=== PATIENT | male | born 1995 | race Hispanic/Latino ===

== ENCOUNTER 2017-02-08 15:21 | Emergency (ER) | payer SELFPAY ==
[~2017-02-08] VITALS: Ht 172.7 cm; Wt 65.0 kg
[~2017-02-08 15:21] MED LIST: FLEXERIL PO; NO; PERCOCET 5/325M1 TAB OR; ULTRAM50 M1 PO
[2017-02-08 16:41] LABS: HEMOGLOBIN 16.2 g/dl (14.0-18.0); IMMATURE GRANULOCYTES 0.1 % (0.0-1.0); MEAN CELL VOLUME 92.5 fL CALC (80.0-100.0); MEAN CORPUSCULAR HGB 31.9 pG CALC (26.0-32.0); MEAN CORPUSCULAR HGB CONC 34.5 g/L CALC (32.0-36.0); NEUT# 4.5 thou/uL (1.82-7.42); RED BLOOD COUNT 5.08 mill/uL (4.70-6.10)
[2017-02-08 16:56] LABS: ALBUMIN 4.6 g/dL (3.2-5.0); ALKALINE PHOSPHATASE 92 u/l (38-126); ANION GAP 17 (6-22 (CALC)); BILIRUBIN, TOTAL 0.7 mg/dL (0.0-1.4); BUN 9 mg/dL (9-20); BUN/CREATININE RATIO 11 (12-20 (CALC)); CALCIUM 9.6 mg/dL (8.4-10.2); CARBON DIOXIDE 23 mmol/l (22-30); CHLORIDE 102 mmol/l (95-108); CPK 50 u/l (52-200); CREATININE 0.8 mg/dL (0.7-1.3); GFR > 60 ML/MIN (>=60 (CALC)); GFR FOR AFR.AMER. > 60 ML/MIN (>=60 (CALC)); GLUCOSE 84 mg/dL (75-110); POTASSIUM 4.3 mmol/l (3.5-5.1); SGOT/AST 28 u/l (17-59); SGPT/ALT 37 u/l (21-72); SODIUM 137 mmol/l (137-146); TOTAL PROTEIN 7.5 g/dL (6.3-8.2)
[2017-02-08 16:57] LABS: AMYLASE 68 u/l (30-110); LIPASE 65 u/l (23-300)
[2017-02-08 17:14] LABS: URINE BILIRUBIN - DIPSTICK NEGATIVE (NEGATIVE); URINE BLOOD DIPSTICK SMALL (NEGATIVE); URINE CLARITY CLEAR; URINE COLOR YELLOW; URINE GLUCOSE - DIPSTICK NEGATIVE (NEGATIVE); URINE KETONE NEGATIVE (NEGATIVE); URINE LEUK ESTERASE NEGATIVE (NEGATIVE); URINE NITRITE - DIPSTICK NEGATIVE (Negative); URINE PH 6.5 (4.5-8.0); URINE PROTEIN - DIPSTICK NEGATIVE (NEG-TRACE); URINE SPECIFIC GRAVITY <=1.005; URINE UROBILINOGEN - DIPSTICK 0.2 E.U./dL (0.2)
[2017-02-08 17:15] LABS: URINE RBC 0-2 RBC/hpf (0-5)
[2017-02-08] MEDS ORDERED: ZOFRAN4 MG/TAB PO (18:24)
[2017-02-08 18:28] VITALS: BP 130/83
== END 2017-02-08 18:34 | disposition home or self-care (01) | DRG 392 ==
LOC: ED 15:21
PROVIDERS: Family Medicine
DX: R10.84 Generalized abdominal pain (principal); Z87.442 Personal history of urinary calculi
CPT/HCPCS: Q9967

== ENCOUNTER 2017-11-26 17:09 | Emergency (ER) | payer SELFPAY ==
[~2017-11-26] VITALS: Ht 172.7 cm; Wt 65.0 kg
[~2017-11-26 17:09] MED LIST changes: +ZOFRAN4 MG/TAB PO
[2017-11-26 17:38] LABS: HEMATOCRIT 44.9 % (39.0-50.0); HEMOGLOBIN 15.7 g/dl (14.0-18.0); IMMATURE GRANULOCYTES 0.3 % (0.0-1.0); MEAN CELL VOLUME 92.2 fL CALC (80.0-100.0); MEAN CORPUSCULAR HGB 32.2 pG CALC (26.0-32.0); NEUT# 4.46 thou/uL (1.82-7.42); RED BLOOD COUNT 4.87 mill/uL (4.70-6.10); RED CELL DISTRI WIDTH 12.1 % (11.5-15.5)
[2017-11-26 18:02] LABS: ALBUMIN 4.7 g/dL (3.2-5.0); ALKALINE PHOSPHATASE 84 u/l (38-126); ANION GAP 18 (6-22 (CALC)); BILIRUBIN, TOTAL 0.5 mg/dL (0.0-1.4); BUN 13 mg/dL (9-20); BUN/CREATININE RATIO 17 (12-20 (CALC)); CARBON DIOXIDE 29 mmol/l (22-30); CHLORIDE 100 mmol/l (95-108); CREATININE 0.8 mg/dL (0.7-1.3); GFR > 60 ML/MIN (>=60 (CALC)); GFR FOR AFR.AMER. > 60 ML/MIN (>=60 (CALC)); LIPASE 90 u/l (23-300); POTASSIUM 4.2 mmol/l (3.5-5.1); SGOT/AST 22 u/l (17-59); SGPT/ALT 30 u/l (21-72); SODIUM 143 mmol/l (137-146); TOTAL PROTEIN 7.9 g/dL (6.3-8.2)
[2017-11-26 18:09] LABS: URINE BILIRUBIN - DIPSTICK NEGATIVE (NEGATIVE); URINE BLOOD DIPSTICK NEGATIVE (NEGATIVE); URINE COLOR YELLOW; URINE GLUCOSE - DIPSTICK NEGATIVE (NEGATIVE); URINE KETONE TRACE mg/dL (NEGATIVE); URINE LEUK ESTERASE NEGATIVE (NEGATIVE); URINE NITRITE - DIPSTICK NEGATIVE (Negative); URINE PROTEIN - DIPSTICK NEGATIVE (NEG-TRACE); URINE SPECIFIC GRAVITY 1.025; URINE UROBILINOGEN - DIPSTICK 0.2 E.U./dL (0.2)
[2017-11-26 18:10] LABS: URINE CLARITY CLEAR
[2017-11-26] MEDS ORDERED: ONDANSETRON4 MG PO (18:18)
[2017-11-26] MEDS ORDERED: MOTRIN400 MG PO (18:18)
[2017-11-26 18:34] VITALS: BP 119/63
== END 2017-11-26 18:44 | disposition home or self-care (01) | DRG 392 ==
LOC: ED 17:09
PROVIDERS: Family Medicine
DX: R10.12 Left upper quadrant pain (principal); R10.32 Left lower quadrant pain; F17.290 Nicotine dependence, other tobacco product, uncomplicated; Z87.442 Personal history of urinary calculi

== ENCOUNTER 2018-05-20 08:29 | Emergency (ER) | payer SELFPAY ==
[~2018-05-20] VITALS: Ht 172.7 cm; Wt 61.0 kg
[~2018-05-20 08:29] MED LIST changes: +MOTRIN400 MG PO; +ONDANSETRON4 MG PO
[2018-05-20] MEDS ORDERED: ZPAK PO (08:43)
[2018-05-20 09:02] VITALS: BP 133/85
== END 2018-05-20 09:12 | disposition home or self-care (01) | DRG 153 ==
LOC: ED 08:29
DX: J06.9 Acute upper respiratory infection, unspecified (principal)

== ENCOUNTER 2022-09-18 19:25 | Emergency (ER) | payer SELFPAY ==
[~2022-09-18] VITALS: Ht 172.7 cm; Wt 68.1 kg
[~2022-09-18 19:25] MED LIST changes: +ZPAK PO
[2022-09-18 19:44] VITALS: BP 131/87
[2022-09-18 19:45] VITALS: BP 120/83
[2022-09-18 20:00] VITALS: BP 110/77
[2022-09-18 20:15] VITALS: BP 109/77
== END 2022-09-18 20:38 | disposition home or self-care (01) | DRG 563 ==
LOC: ED 19:25
DX: S39.011A Strain of muscle, fascia and tendon of abdomen, initial encounter (principal); X50.0XXA Overexertion from strenuous movement or load, initial encounter

== ENCOUNTER 2023-09-09 14:48 | Emergency (ER) | payer SELFPAY ==
[~2023-09-09] VITALS: Ht 172.7 cm; Wt 63.0 kg
[2023-09-09 14:54] VITALS: BP 119/73
[2023-09-09 15:00] VITALS: BP 110/75
[2023-09-09] MEDS ORDERED: SODIUM CHLORIDE 0.9% 1,000 ML IV ONE (15:00)
[2023-09-09] MEDS ORDERED: KETOROLAC TROMETHAMINE 30 MG/ML SDV IV ONE (15:00)
[2023-09-09] MEDS ORDERED: ACETAMINOPHEN 500 MG TAB PO ONE (15:05)
[2023-09-09 15:15] LABS: BASO% 0.1 % (0-3); EOS% 0.1 % (0-8); HEMATOCRIT 42.1 % (39.0-50.0); HEMOGLOBIN 14.4 g/dl (14.0-18.0); IMMATURE GRANULOCYTES 0.1 % (0.0-5.0); LYMPH% 10.3 % (15-41); MEAN CELL VOLUME 89.4 fL CALC (80.0-100.0); MEAN CORPUSCULAR HGB 30.6 pG CALC (26.0-32.0); MEAN CORPUSCULAR HGB CONC 34.2 g/dL CAL (32.0-36.0); MONO% 7.2 % (2-13); NEUT# 5.71 thou/uL (1.82-7.42); NEUT% 82.2 % (42-76); RED BLOOD COUNT 4.71 mill/uL (4.70-6.10); RED CELL DISTRI WIDTH 12.3 % (11.5-15.5)
[2023-09-09 15:30] VITALS: BP 114/72
[2023-09-09 15:38] LABS: ALBUMIN 4.4 g/dL (3.2-5.0); ALKALINE PHOSPHATASE 69 u/l (38-126); ANION GAP 15 (6-22 (CALC)); BILIRUBIN, TOTAL 0.6 mg/dL (0.2-1.3); BUN 13 mg/dL (9-20); BUN/CREATININE RATIO 13 (12-20 (CALC)); CARBON DIOXIDE 21 mmol/l (22-30); CHLORIDE 103 mmol/l (95-108); GFR FOR AFR.AMER. > 60 ML/MIN (>=60 (CALC)); GFR OTHER RACES > 60 ML/MIN (>=60 (CALC)); POTASSIUM 3.9 mmol/l (3.5-5.1); SGOT/AST 47 u/l (17-59); SODIUM 135 mmol/l (137-146); TOTAL PROTEIN 7.2 g/dL (6.3-8.2)
[2023-09-09 16:00] VITALS: BP 107/61
[2023-09-09 16:01] VITALS: BP 107/61
== END 2023-09-09 16:28 | disposition home or self-care (01) | DRG 153 ==
LOC: ED 14:48
PROVIDERS: Family Medicine
DX: J11.1 Influenza due to unidentified influenza virus with other respiratory manifestations (principal); Z87.442 Personal history of urinary calculi; Z72.0 Tobacco use; Z20.822 Contact with and (suspected) exposure to COVID-19